=== PATIENT | female | born 1975 | race Caucasian/White ===

== ENCOUNTER 2022-05-11 17:04 | Emergency (ER) | payer MEDICAID ==
[~2022-05-11] VITALS: Ht 160 cm; Wt 72.6 kg
[2022-05-11 17:05] VITALS: BP_SYST 147
--- NOTE | 2022-05-11 17:05 | NUR ---
BROUGHT IN BY [facility] [facility] AND PLACED IN BED #3, TRIAGED AND REPORT GIVEN TO
--- NOTE | 2022-05-11 17:08 | NUR ---
ACCORDING TO MEDICS, PT WAS WORKING OUT AT [facility] AND HAD A WITNESSED 30 SEC TONIC/ CLONIC SEIZURE INVOLVING ONLY UPPER EXTREMITIES. PT WAS DROOLING AND SLUMPED OVER WITH [employer]CS OF 4-2-5, UPON ARRIVAL TO ER--PT IS MORE AWAKE BUT STILL UNABLE TO STATE WHAT MEDICATIONS SHE TAKES FOR SEIZURES, SHE STATES SHE TAKES 2 MEDICATIONS.
[2022-05-11] MEDS ORDERED: levETIRAcetam 1,000 MG IV BAG 100 ML IV ONE (18:00)
--- NOTE | 2022-05-11 18:15 | NUR ---
PHARMACY CALLED FOR MEDS.
--- NOTE | 2022-05-11 18:31 | NUR ---
PATIENT BIBA FROM HOME AAOX4 SPEECH CLEAR AND COHERENT, MOVE ALL EXTREMITIES, DENIES CHEST PAIN, EDP SEEN PATIENT WITH ORDER BERTHA OUT, PATIENT ON 1ST PRESSMAN ON WEB PRESS.
[2022-05-11 18:37] LABS: BASOPHILS # (AUTO) 0.1 K/uL (0.0-0.2); BASOPHILS % (AUTO) 0.4 % (0.0-2.0); EOSINOPHILS # (AUTO) 0.1 K/uL (0.0-0.4); EOSINOPHILS % (AUTO) 0.9 % (0.0-4.0); HEMATOCRIT 43.5 % (36-48); HEMOGLOBIN 14.4 g/dL (12.0-16.0); LYMPHOCYTES # (AUTO) 1.6 K/uL (1.0-5.5); LYMPHOCYTES % (AUTO) 11.6 % (20.5-51.5); MEAN CORPUSCULAR HEMOGLOBIN 29 pg (27-31); MEAN CORPUSCULAR HGB CONC 33 % (32-36); MEAN CORPUSCULAR VOLUME 86 fL (79.0-98.0); NEUTROPHILS # (AUTO) 11.1 K/uL (1.8-7.7); NEUTROPHILS % (AUTO) 80.1 % (40.0-70.0); PLATELET COUNT (AUTO) 257 K/uL (130-430); RED BLOOD CELL COUNT(AUTO) 5.06 MIL/uL (4.2-6.2); RED CELL DISTRIBUTION WIDTH 15.5 % (9.0-15.0); WHITE BLOOD COUNT (AUTO) 13.8 K/uL (4.8-10.8)
[2022-05-11 19:02] LABS: CALCIUM 9.2 mg/dL (8.4-11.0); CREATININE 0.75 mg/dL (0.55-1.30)
[2022-05-11 19:09] LABS: ALBUMIN 3.9 g/dL (3.4-4.8); TOTAL BILIRUBIN 0.2 mg/dL (0.0-1.0)
[2022-05-11 21:00] LABS: BILIRUBIN,URINE NEGATIVE (NEGATIVE); BLOOD, URINE NEGATIVE (NEGATIVE); CLARITY/URINE CLEAR (CLEAR); COLOR,URINE YELLOW (YELLOW); GLUCOSE,URINE NEGATIVE (NEGATIVE); KETONES,URINE NEGATIVE (NEGATIVE); LEUKOCYTE ESTERASE ,URINE NEGATIVE (NEGATIVE); NITRITE, URINE NEGATIVE (NEGATIVE); PROTEIN URINE NEGATIVE (NEGATIVE); UROBILINOGEN,URINE 0.2 (0.2-1.0)
[2022-05-11] MEDS ORDERED: KETOROLAC TROMETHAMINE 30 MG VIAL IVP ONE (21:45)
--- NOTE | 2022-05-11 22:00 | NUR ---
COVID 19 SWAB TEST SAMPLE COLLECTED AND TAKEN TO LAB FOR ANALYSIS
[2022-05-12] MEDS ORDERED: LEVE500T9 PO (00:54)
[2022-05-12 01:10] VITALS: BP_SYST 131
--- NOTE | 2022-05-12 01:10 | NUR ---
Patient given written and verbal discharge instructions and verbalizes understanding. ER DR. ALVAREZ discussed with patient the results and treatment provided. Patient in stable condition. ID arm band removed. IV catheter removed intact and dressing applied, no active bleeding. Rx of KEPPRA given. Patient educated on pain management and to follow up with PMD. Pain Scale 0. Opportunity for questions provided and answered. Medication side effect fact sheet provided.
== END 2022-05-12 01:10 | disposition home or self-care (01) ==
LOC: SED 17:04 → EDBD 17:04 → SED 05-12 01:10
DX: G40.909 Epilepsy, unspecified, not intractable, without status epilepticus (principal); Z79.899 Other long term (current) drug therapy; Z20.822 Contact with and (suspected) exposure to COVID-19
CPT/HCPCS: 99291; 96365; 96375; 87426; 80053; 85025; 36415; 71045; 81003; J1885; J1953 ×2